=== PATIENT | female | born 1990 | race Caucasian/White ===

== ENCOUNTER 2017-04-28 12:15 | Emergency (ER) | payer OTHER ==
[~2017-04-28] VITALS: Ht 165.1 cm; Wt 82.6 kg
--- NOTE | 2017-04-28 12:39 | NUR ---
PT IN ROOM. PT A&OX4. PT CAME IN FROM HOME WITH COMPLAINT OF ACUTE COUGH AND POSSIBLE HIV EXPOSURE. PT WAS EVALUATED BY MD. CURRENTLY AWAITING FURTHER MD ORDERS.
[2017-04-28 12:58] LABS: BASOPHILS % (AUTO) 0.6 % (0.0-2.0); EOSINOPHILS # (AUTO) 0.2 K/uL (0.0-0.7); EOSINOPHILS % (AUTO) 2.3 % (0.0-7.0); HEMATOCRIT 42.6 % (31.2-41.9); HEMOGLOBIN 14.9 g/dL (10.9-14.3); LYMPHOCYTES # (AUTO) 1.5 K/uL (20.0-40.0); LYMPHOCYTES % (AUTO) 18.9 % (20.5-51.5); MEAN CORPUSCULAR HEMOGLOBIN 30.4 uug (24.7-32.8); MEAN CORPUSCULAR HGB CONC 35 g/dL (32.3-35.6); MEAN CORPUSCULAR VOLUME 86.6 fL (75.5-95.3); MONOCYTES # (AUTO) 0.4 K/uL (2.0-10.0); MONOCYTES % (AUTO) 4.9 % (0.0-11.0); NEUTROPHILS # (AUTO) 5.6 K/uL (1.8-8.9); NEUTROPHILS % (AUTO) 73.3 % (38.5-71.5); PLATELET COUNT (AUTO) 253 K/uL (179-408); RED BLOOD CELL COUNT(AUTO) 4.91 MIL/uL (3.63-4.92); WHITE BLOOD COUNT (AUTO) 7.7 K/uL (3.8-11.8)
[2017-04-28 13:04] LABS: CREATININE 0.7 mg/dL (0.6-1.3); POTASSIUM 4.1 mmol/L (3.5-5.1)
[2017-04-28 13:11] LABS: BILIRUBIN,TOTAL 0.5 mg/dL (0.2-1.0); TOTAL PROTEIN, SERUM 8.3 g/dL (6.4-8.2)
[2017-04-28 14:13] VITALS: BP 128/84
== END 2017-04-28 14:11 | disposition home or self-care (01) ==
LOC: ER 12:15
DX: J45.909 Unspecified asthma, uncomplicated (principal)
CPT/HCPCS: 36415; 85025; 87536; 87806; A4663

== ENCOUNTER 2017-05-07 11:10 | Emergency (ER) | payer BC, OTHER ==
[~2017-05-07] VITALS: Ht 165.1 cm; Wt 68.0 kg
--- NOTE | 2017-05-07 11:45 | NUR ---
PT IN BED W/ MOTHER AT BEDSIDE. MED EVAL COMPLETED BY MD GARCIA. AWAITING MD ORDERS.
[2017-05-07 12:20] LABS: *URINE HCG, QUAL NEGATIVE (NEGATIVE)
--- NOTE | 2017-05-07 12:40 | NUR ---
PT IN BED. PT A&OX4. VS STABLE. MOTHER AT BEDSIDE. CURRENTLY, ALL LAB DRAWN AND RAD ORDER COMPLETED. AWAITING FURTHER MD EVAL AND/OR ORDERS.
[2017-05-07] MEDS ORDERED: IBUPROFEN 600 MG TABLET PO ONE (13:15)
[2017-05-07] MEDS ORDERED: AZITHROMYCIN 250 MG TABLET PO ONE (13:15)
[2017-05-07 13:16] VITALS: BP 106/71
[2017-05-07] MEDS ORDERED: AZITHROMYCIN 250 MG TABLET ONE (13:17)
[2017-05-07] MEDS ORDERED: IBUPROFEN 600 MG TABLET ONE (13:21)
== END 2017-05-07 13:11 | disposition home or self-care (01) ==
LOC: ER 11:10
DX: J40 Bronchitis, not specified as acute or chronic (principal)
CPT/HCPCS: 71045; 84703; 87400; A4663; Q0144